=== PATIENT | male | born 1995 | race Caucasian/White ===

== ENCOUNTER 2019-04-10 15:51 | Emergency (ER) | payer BC ==
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
[2019-04-10 16:48] VITALS: BP 154/81; TEMP 97.2; O2SAT 100
== END 2019-04-10 16:36 | disposition home or self-care (01) ==
LOC: ER 15:51
DX: S00.33XA Contusion of nose, initial encounter (principal); Y04.2XXA Assault by strike against or bumped into by another person, initial encounter; Y93.9 Activity, unspecified; Y92.9 Unspecified place or not applicable; Z88.1 Allergy status to other antibiotic agents
CPT/HCPCS: 99281

== ENCOUNTER 2024-09-18 14:32 | Emergency (ER) | payer BC ==
--- NOTE | 2024-09-18 16:14 | RAD REPORT ---
EXAM: Scrotum Testicles HISTORY: 29 years Male scrotal pain COMPARISON: None TECHNIQUE: Multiplanar grayscale and color Doppler images were obtained in a testicular/scrotal ultra sound. Spectral analysis of the Doppler waveforms of the testicles were performed. FINDINGS: Right testicle: Normal in echogenicity. No focal mass. Normal internal flow. The right testicle micaela ures 4.3 x 2.6 x 3.6 cm with volume of 31 mL. Left testicle: Normal in echogenicity. No focal mass. Normal internal flow. The left testicle measur es 4.2 x 2.9 x 4.5 cm with volume of 28.9 mL. Right epididymis. No epididymal cyst. Normal internal flow. Left epididymis. No epididymal cyst. Normal internal flow. No significant hydroceles. Mild left varicocele. IMPRESSION: Mild left varicocele. Bilateral testicular blood flow.
[2024-09-18 17:54] LABS: Urine Bilirubin NEGATIVE (Negative); Urine Blood Negative (Negative); Urine Clarity Clear (Clear); Urine Color Yellow (Yellow); Urine Glucose Negative (Negative); Urine Ketones Negative (Negative)
[2024-09-18 17:55] LABS: Urine pH 5.5 (5.0-7.0)
[2024-09-18 17:56] LABS: Urine Nitrite Negative (Negative); Urine Protein TRACE (Negative); Urine Urobilinogen Normal mg/dL (0.2-1.0); Urine WBC <5 /HPF (<5)
[2024-09-18 17:57] LABS: Sqamous Epithelial <5 /HPF (None Seen); Urine Bacteria <20 /HPF (<20); Urine Culture Reflex Order NOT NEEDED; Urine Mucus 1+ /HPF (None Seen); Urine RBC <5 /HPF (None Seen)
[2024-09-18 18:00] LABS: Urine Microscopic Reflex YN ORDER UMIC
--- NOTE | 2024-09-18 18:02 | EDPHYS ---
Physician Documentation [facility] Name: Jaren Guzmán Age: 29 yrs Sex: Male : 1995 Arrival Date: 09/18/2024 Time: 14:32 Bed 14 Private MD: ED Physician Ronald Arias HPI: 09/18 14:59 This 29 yrs old Male presents to ER via Ambulatory with complaints of Testicular Pain. rn 14:59 The patient presents with scrotal pain. rn 14:59 Onset: The symptoms/episode began/occurred 5 day(s) ago. Modifying factors: The rn symptoms are alleviated by nothing, the symptoms are aggravated by nothing. Severity of symptoms: At their worst the symptoms were mild, in the emergency department the symptoms are unchanged. The patient has not experienced similar symptoms in the past. Patient reports scrotal pain, happening for almost a week. No fever or chills. No trauma. No swelling. No discoloration. Patient reports mild help with elevation of scrotum. No urinary symptoms. No abdominal pain. No back pain. No history of hernia. Denies current pain.. 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 Historical: - Allergies: 14:36 Azithromycin; ll1 14:36 Keflex; ll1 - Immunization history:: Adult Immunizations up to date. - Infectious Disease History:: Denies. - Social history:: Smoking status: Patient denies any tobacco usage or history of. - Family history:: not pertinent. - Hospitalizations: : No recent hospitalization is reported. ROS: 14:59 Constitutional: Negative for fever, chills, and weight loss, Neck: Negative for injury, rn pain, and swelling, Cardiovascular: Negative for chest pain, palpitations, and edema, Respiratory: Negative for shortness of breath, cough, wheezing, and pleuritic chest pain, Abdomen/GI: Negative for abdominal pain, nausea, vomiting, diarrhea, and constipation, Back: Negative for injury and pain, : + scrotal pain Exam: 14:59 Constitutional: This is a well developed, well nourished patient who is awake, alert, rn and in no acute distress. Abdomen/GI: soft, non-tender Male : Normal genitalia with no discharge or lesions. No redness or warmth or discoloration. No fluctuance. No masses. No swelling noted. No focal tenderness on exam. Bilateral inguinal canals empty without evidence of hernia. Normal penile exam Vital Signs: 14:40 BP 191 / 110; Pulse 97; Resp 18; Temp 97.9; Pulse Ox 100% ; Pain 4/10; ll1 14:47 BP 174 / 85; ll1 16:05 BP 136 / 78; Pulse 83; Resp 16; Pulse Ox 96% ; db 17:00 BP 131 / 81; Pulse 75; Resp 16; Pulse Ox 97% on R/A; db 14:40 Pain Scale: Adult ll1 MDM: 14:36 Medical Screening Exam initiated rn 18:02 Differential diagnosis: UTI, Varicocele, hydrocele. Data reviewed: vital signs, nurses rn notes, lab test result(s), radiologic studies, ultrasound, and as a result, I will discharge patient. Counseling: I had a detailed discussion with the patient and/or guardian regarding the historical points, exam findings, and any diagnostic results supporting the discharge/admit diagnosis, lab results, radiology results, the need for outpatient follow up, to return to the emergency department if symptoms worsen or persist or if there are any questions or concerns that arise at home. Special discussion: I discussed with the patient/guardian in detail that at this point there is no indication for admission to the hospital. It is understood, however, that if the symptoms persist or worsen the patient needs to return immediately for re-evaluation. Based on the history and exam findings, there is no indication for further emergent testing or inpatient evaluation. I discussed with the patient/guardian the need to see the urologist for further evaluation of the symptoms. 18:02 ED course: I have personally reviewed all of the results, including but not limited to rn blood tests and imaging deemed necessary to safely discharge this patient at this time. All results given to and printed out for patient. I personally went over all the results with the patient and answered all questions. Patient will follow-up with PCP and or specialist as discussed. Return precautions given and understood.. 09/18 14:43 Order name: Urinalysis w/ reflexes; Complete Time: 18:01 rn 09/18 14:43 Order name: US Scrotum Testicles; Complete Time: 16:17 rn Administered Medications: No medications were administered Disposition Summary: 09/18/24 18:02 Discharge Ordered Notes: Location: Home rn Problem: an ongoing problem rn Symptoms: have improved rn Condition: Stable rn Diagnosis - Scrotal varicocele rn Followup: rn - With: Jeff Subramanian MD - When: As needed - Reason: Recheck today's complaints, Re-evaluation by your physician Discharge Instructions: - Discharge Summary Sheet rn - Varicocele rn Forms: - Medication Reconciliation Form rn - Antibiotic rn employee health - Prescription Opioid Use rn - Patient Portal Instructions rn - Leadership Thank You Letter rn Signatures: Dispatcher [employer] Ronald Crouch MD MD rn N[place] Crystal RN RN ll1 Harper Kong RN RN db
--- NOTE | 2024-09-18 18:02 | ER ---
Nurse's Notes [facility] Name: Jaren Guzmán Age: 29 yrs Sex: Male : 1995 Arrival Date: 09/18/2024 Time: 14:32 Bed 14 Private MD: Diagnosis: Scrotal varicocele Presentation: 09/18 14:40 Chief complaint: Patient states: Noticed testicular pain since Vern night. No ll1 swelling or fever. Coronavirus screen: Client denies travel out of the [place] in the last 14 days. At this time, the client does not indicate any symptoms associated with coronavirus-19. Ebola Screen: Patient denies travel to an Ebola-affected area in the 21 days before illness onset. Initial Sepsis Screen: Does the patient meet any 2 criteria? No. Patient's initial sepsis screen is negative. Does the patient have a suspected source of infection? No. Patient's initial sepsis screen is negative. Risk Assessment: Do you want to hurt yourself or someone else? Patient reports no desire to harm self or others. Onset of symptoms was September 12, 2024. 14:40 Method Of Arrival: Ambulatory ll1 14:40 Acuity: MYA 2 ll1 Triage Assessment: 14:41 General: Appears uncomfortable, Behavior is calm, cooperative, appropriate for age. ll1 Pain: Complains of pain in testes Pain currently is 4 out of 10 on a pain scale. Quality of pain is described as aching. : Reports pain in bilateral testicle, since Sunday night. Historical: - Allergies: 14:36 Azithromycin; ll1 14:36 Keflex; ll1 - Immunization history:: Adult Immunizations up to date. - Infectious Disease History:: Denies. - Social history:: Smoking status: Patient denies any tobacco usage or history of. - Family history:: not pertinent. - Hospitalizations: : No recent hospitalization is reported. Screenin:15 [facility] ED Fall Risk Assessment (Adult) History of falling in the last 3 months, db including since admission No falls in past 3 months (0 pts) Confusion or Disorientation No (0 pts) Intoxicated or Sedated No (0 pts) Impaired Gait No (0 pts) Mobility Assist Device Used No (0 pt) Altered Elimination No (0 pt) Score/Fall Risk Level 0 - 2 = Low Risk Oriented to surroundings, Maintained a safe environment. Abuse screen: Denies threats or abuse. Denies injuries from another. Nutritional screening: No deficits noted. Tuberculosis screening: No symptoms or risk factors identified. Assessment: 15:30 Reassessment: Patient appears in no apparent distress at this time. Patient and/or db family updated on plan of care and expected duration. Pain level reassessed. Patient is alert, oriented x 3, equal unlabored respirations, skin warm/dry/pink. General: Appears in no apparent distress. comfortable, Behavior is calm, cooperative. Neuro: Level of Consciousness is awake, alert, obeys commands, Oriented to person, place, time, situation. Respiratory: Airway is patent Respiratory effort is even, unlabored, Respiratory pattern is regular, symmetrical. 18:15 Reassessment: Patient appears in no apparent distress at this time. Patient and/or db family updated on plan of care and expected duration. Pain level reassessed. Patient is alert, oriented x 3, equal unlabored respirations, skin warm/dry/pink. Patient states feeling better. Patient states symptoms have improved. Vital Signs: 14:40 BP 191 / 110; Pulse 97; Resp 18; Temp 97.9; Pulse Ox 100% ; Pain 4/10; ll1 14:47 BP 174 / 85; ll1 16:05 BP 136 / 78; Pulse 83; Resp 16; Pulse Ox 96% ; db 17:00 BP 131 / 81; Pulse 75; Resp 16; Pulse Ox 97% on R/A; db 14:40 Pain Scale: Adult ll1 ED Course: 14:34 Patient arrived in ED. im 14:36 Ronald Arias MD is Attending Physician. rn 14:36 Arm band placed on Patient placed in an exam room, on a stretcher. ll1 14:41 Triage completed. ll1 15:45 US Scrotum Testicles In Process Unspecified. EDMS 16:00 Harper Kong, YOKASTA is Primary Nurse. db 16:15 Urine collected: clean catch specimen. db 18:02 Jeff Subramanian MD is Referral Physician. rn 18:15 Patient has correct armband on for positive identification. Bed in low position. Call db light in reach. Side rails up X 1. Provided Education on: DISCHARGE AND FOLLOWUP. Pulse ox on. NIBP on. 18:15 No provider procedures requiring assistance completed. Patient did not have IV access db during this emergency room visit. Administered Medications: No medications were administered Medication: 18:15 VIS not applicable for this client. db Outcome: 18:02 Discharge ordered by . rn 18:15 Discharged to home ambulatory, with family, db 18:15 Condition: stable 18:15 Discharge instructions given to patient, Instructed on discharge instructions, follow up and referral plans. 18:19 Patient left the ED. ll1 Signatures: Dispatcher [employer] EDMS Ronald Arias MD MD rn Lewis, Lynsay, RN RN [facility] Harper Kong RN RN Ivonne Britton
[2024-09-18 18:22] VITALS: TEMP 97.9
[2024-09-18 18:26] VITALS: BP 131/81; O2SAT 97
== END 2024-09-18 18:19 | disposition home or self-care (01) ==
LOC: ER 14:32
DX: I86.1 Scrotal varices (principal)
CPT/HCPCS: 76870; 81001; 99283

== ENCOUNTER 2024-10-26 11:27 | Emergency (ER) | payer BC ==
--- OUTSIDE RECORDS SUMMARY | 2024-10-26 11:30 | XMS REPORT | Continuity of Care Document ---
Author Name Unknown Address [address] [facility] [place] [address] [facility] [place] Address [address] 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 Role Phone LILIA FRYE Attending Clinician Unavailab MARI Leal Attending Clinician Unavailable Payers Payer Name Policy Type Policy Number Effective Date Expirati on Date Source [facility] 2 [id number] 2022 00:00:00 Problems Condition Name Condition Details Condition Category Status Onset Date Resolution Date Last Treatment Date Treating Clinician Comments Source Unable to lose weight Unable to lose weight Disease Active 08-01 00:00: 00 Xiomara Seybold - Externa l BMI 40.0-44.9, adult BMI 40.0-44.9, adult Disease Active 08-01 00:00: 00 Xiomara Seybold - Externa l Seasonal allergic rhinitis due to pollen Seasonal allergic rhinitis due to pollen Disease Active 2021-06 00:00: 00 Xiomara Seybold - Externa l Elevated BP without diagnosis of hypertensi on Elevated BP without diagnosis of hypertensi on Disease Active 2021-06 00:00: 00 Xiomara Seybold - Externa l Pilonidal cyst Pilonidal cyst Disease Active 2021-06 00:00: 00 Xiomara Seybold - Externa l Class 3 severe obesity due to excess calories without serious comorbidit y with body mass index (BMI) of 40.0 to 44.9 in adult Class 3 severe obesity due to excess calories without serious comorbidit y with body mass index (BMI) of 40.0 to 44.9 in adult Disease Active 2021-06 00:00: 00 Xiomara Banguraold - Externa l Other fatigue Other fatigue Disease Active 2021-06 00:00: 00 Xiomara Chauhan - Externa l [id number] Left varicocele Problem [facility] Allergies, Adverse Reactions, Alerts Allergy Name Allergy Type Status Severity Reaction(s) Onset Date Inactive Date Treating Clinician Comments Source Orphenad fabianoscottie Nicoleeliel ty to adverse reaction s Active 2021-06 00:00: 00 Xiomara Banguraold - Externa l Social History Social Habit Start Date Stop Date Quantity Comments Source History of Tobacco Use Current Smoker [facility] Sex Assigned At [facility] History SDOH Alcohol Frequency Xiomara Goins bold - External History SDOH Alcohol Std Drinks Xiomara Orr ybold - External History SDOH Alcohol Binge Xiomara Chauhan - External Sexual orientation K steve ybjulita - External History of Occupation Xiomara Chauhan - External Alcoholic beverage intake 2024-08-01 00:00:00 2024-08-01 00:00:00 Current drinker of alcohol (finding) Xiomara Chauhan - External History of Social function 2024-08-01 00:00:00 2024-08-01 00:00:00 Xiomara Chauhan - External Sex 2022-04-27 10:51:48 2022-04-27 10:51:48 Male (finding) Xiomara Chauhan - External Alcohol intake 2022-04-27 00:00:00 2022-04-27 00:00:00 Current drinker of alcohol (finding) Xiomara Chauhan - External Alcohol Comment 2022-04-27 00:00:00 2022-04-27 00:00:00 rarely Xiomara Chauhan - External Education 2022-04-27 00:00:00 2022-04-27 00:00:00 16 Xiomara Chauhan - External Cigarettes smoked current (pack per day) - Reported 2022-04-27 00:00:00 2022-04-27 00:00:00 Xiomara Chauhan - External Cigarette pack-years 2022-04-27 00:00:00 2022-04-27 00:00:00 Xiomara Setanya - External Tobacco use and exposure 2022-04-27 00:00:00 2022-04-27 00:00:00 User of smokeless tobacco Xiomara Chauhan - External Smoking Status Start Date Stop Date Source Current Smoker 2024-10-02 00:00:00 [facility] Ex-smoker 2022-04-27 00:00:00 2022-04-27 00:00:00 Luan wilson Gissel - External Medications Ordered Medication Name Filled Medication Name Start Date Stop Date Current Medication? Ordering Clinician Indication Dosage Frequency Signature (SIG) Comments Components Source Semaglutide -WEGOVY-Pasha ght Management 0.25 MG/0.5ML Subcutaneou s Solution Auto-inject or 08-01 00:00: 00 Yes [id number] .25mg Q1W Inject 0.25 mg into the skin once a week. Xiomara merlos Amoxicillin -Pot Clavulanate 875-125 MG oral Tablet 2021-06 00:00: 00 08-01 00:00 :00 No [id number] 1{tbl} Q.5D Take 1 tablet by mouth 2 times daily Xiomara merlos Mupirocin (BACTROBAN) 2 % apply externally Ointment 2021-06 00:00: 00 08-01 00:00 :00 No [id number] Q.5D Apply 1 applicatio n topically 2 times daily Xiomara Vang l Famotidine 20 MG Famotidine 20 MG No 1{table t_at_be dtime_a s_neede d} QD Famotidine 20 MG Wegovy 0.25 MG/0.5ML Wegovy 0.25 MG/0.5ML No Wegovy 0.25 MG/0.5ML Vital Signs Vital Name Observation Time Observation Value Comments S ource weight 2024-10-02 16:45:00 297.8 [lb_av] Co mmon [facility] temperature 2024-10-02 16:45:00 98.6 [degF] Com mon [facility] bmi 2024-10-02 16:45:00 40.38 kg/m2 Comm on [facility] oximetry 2024-10-02 16:45:00 95 % Commo n [facility] respiratory rate 2024-10-02 16:45:00 18 /min Common [facility] blood pressure systolic 2024-10-02 16:45:00 140 mm[Hg] Common [facility] blood pressure diastolic 2024-10-02 16:45:00 88 mm[Hg] Common [facility] height 2024-10-02 16:45:00 72 [in_i] Commo n [facility] Systolic blood pressure 2024-08-01 17:09:00 120 mm[Hg] Xiomara Seybo ld - External Diastolic blood pressure 2024-08-01 17:09:00 66 mm[Hg] Xiomara Seybo ld - External Heart rate 2024-08-01 17:09:00 76 /min Radha holcomb Seybold - External Body temperature 2024-08-01 17:09:00 36.17 Rosalind Xiomara Seybold - External Respiratory rate 2024-08-01 17:09:00 20 /min Xiomara Orrybold - External Body height 2024-08-01 17:09:00 182.9 cm Zohra ey Seybold - External Body weight 2024-08-01 17:09:00 138.801 kg Zohra ey Seybold - External BMI 2024-08-01 17:09:00 41.50 kg/m2 Zohra ey ybold - External Oxygen saturation in Arterial blood by Pulse oximetry 2024-08-01 17:09:00 97 /min Xiomara Seybo ld - External Systolic blood pressure 2022-04-27 22:26:00 152 mm[Hg] Xiomara Seybo ld - External Diastolic blood pressure 2022-04-27 22:26:00 89 mm[Hg] Xiomara Seybo ld - External Body temperature 2022-04-27 22:26:00 37 Rosalind Xiomara Orrybold - External Respiratory rate 2022-04-27 22:26:00 14 /min Xiomara Chauhan - External Body height 2022-04-27 22:26:00 182.9 cm Zohra Banguraold - External Body weight 2022-04-27 22:26:00 136.079 kg Zohra espinoza Seybold - External BMI 2022-04-27 22:26:00 40.69 kg/m2 Zohra Chauhan - External Oxygen saturation in Arterial blood by Pulse oximetry 2022-04-27 22:26:00 99 /min Xiomara Bangurao ld - External Encounters Start Date/Time End Date/Time Encounter Type Admission Type Attending [facility] Care Department Encounter ID Source 2024-11-12 09:30:00 2024-11-12 09:30:00 Outpatient LILIA FRYE [id number] Xiomara tanya 2024-10-10 00:00:00 2024-10-10 00:00:00 Outpatient MARI RUIZ [id number] Xiomara Willemjulita 2024-10-10 00:00:00 2024-10-10 00:00:00 Outpatient MARI RUIZ [id number] Xiomara julita 2024-10-09 00:00:00 2024-10-09 00:00:00 Outpatient MARI RUIZ [id number] Xiomara tanya 2024-10-02 00:00:00 2024-10-02 00:00:00 OFFICE VISIT NEW PT LEVEL 3 STLMLC STLMLC [id number] [facility] 2024-09-11 10:00:00 2024-09-11 10:00:00 Outpatient LILIA FRYE [id number] Xiomara Chauhan 2024-08-01 11:00:00 2024-08-01 11:00:00 Outpatient LILIA FRYE [id number] Xiomara Chauhan 2024-07-31 10:00:00 2024-07-31 10:00:00 Outpatient LILIA FRYE [id number] Xiomara Chauhan 2022-06-02 00:00:00 2022-06-02 00:00:00 Outpatient MARI RUIZ [id number] Xiomara Chauhan 2022-05-10 11:15:00 2022-05-10 11:15:00 Outpatient MARI RUIZ [id number] Xiomara Chauhan 2022-04-27 16:30:00 2022-04-27 16:30:00 Outpatient MARI RUIZ [id number] Xiomara Chauhan
--- NOTE | 2024-10-26 11:38 | EDPHYS ---
Physician Documentation [facility] Name: Jaren Guzmán Age: 29 yrs Sex: Male : 1995 Arrival Date: 10/26/2024 Time: 11:27 Bed IW1 Private MD: ED Physician Ronald Arias HPI: 10/26 11:36 This 29 yrs old Male presents to ER via Ambulatory with complaints of Lump Behind Ear. kb 11:36 Pt is a 29 year old male who woke up with swelling just below left ear this morning. kb Denies pain, fever. States he can feel that it is there, but it doesn't bother him at all. Denies ear pain, toothache. . Historical: - Allergies: 11:34 Azithromycin; ss 11:34 Keflex; ss - Home Meds: 11:34 None [Active]; ss - PMHx: 11:34 GERD; ss - PSHx: 11:34 None; ss - Infectious Disease History:: Denies. - Social history:: Smoking status: Patient denies any tobacco usage or history of. ROS: 11:35 Constitutional: As per HPI kb Exam: 11:35 Constitutional: This is a well developed, well nourished patient who is awake, alert, kb and in no acute distress. Head/Face: Normocephalic, atraumatic. ENT: Moist Mucous membranes Cardiovascular: Regular rate Respiratory: Respirations even and unlabored. No increased work of breathing. Talking in full sentences MS/ Extremity: Pulses equal, no cyanosis. Neurovascular intact. Full, normal range of motion. Neuro: Awake and alert, GCS 15, oriented to person, place, time, and situation. 11:35 Skin: swelling and firmness just below left ear, no tenderness. Vital Signs: 11:33 BP 139 / 96; Resp 15; ss 11:36 Pulse 93; Temp 97.8(O); Pulse Ox 98% ; Weight 131.54 kg; Height 6 ft. 0 in. ; Pain 0/10;ss 11:36 Body Mass Index 39.33 (131.54 kg, 182.88 cm) ss 11:36 Pain Scale: Adult ss MDM: 11:31 Medical Screening Exam initiated kb 11:36 Differential diagnosis: muscle strain, torticollis, abscess, cellulitis. Data reviewed: kb vital signs, nurses notes. Counseling: I had a detailed discussion with the patient and/or guardian regarding the historical points, exam findings, and any diagnostic results supporting the discharge/admit diagnosis, the need for outpatient follow up, a family practitioner, to return to the emergency department if symptoms worsen or persist or if there are any questions or concerns that arise at home. Administered Medications: No medications were administered Disposition: 12:15 Co-signature as Attending Physician, Ronald Arias MD I reviewed the patient's care rn provided by the Advanced Practice Provider and agree with the diagnosis and treatment plan. Disposition Summary: 10/26/24 11:37 Discharge Ordered Notes: Location: Home kb Condition: Stable kb Diagnosis - Localized swelling, mass and lump, neck kb Followup: kb - With: Emergency Department - When: As needed - Reason: Worsening of condition Followup: kb - With: Private Physician - When: 2 - 3 days - Reason: Recheck today's complaints, Continuance of care, Re-evaluation by your physician Discharge Instructions: - Discharge Summary Sheet kb - Acute Torticollis, Adult kb - Cellulitis, Adult, Joxc-rh-Tqam kb Forms: - Medication Reconciliation Form kb - Antibiotic Education kb - Prescription Opioid Use kb - Patient Portal Instructions kb - Leadership Thank You Letter kb Prescriptions: - Bactrim DS 800-160 mg Oral Tablet - take 1 tablet ORAL route every 12 hours for 7 days; 14 tablet; Refills: 0, kb Product Selection Permitted Signatures: Ledy Jules, JOSE ALEJANDRO-C TIRE CORD WEAVER-CkRonald Mendez MD MD rn Blanchard, Shelby, RN RN ss Corrections: (The following items were deleted from the chart) 11:36 11:35 Skin: postauricular swelling, area firm, not tender. kb kb
--- NOTE | 2024-10-26 11:38 | ER ---
Nurse's Notes [facility] Name: Jaren Guzmán Age: 29 yrs Sex: Male : 1995 Arrival Date: 10/26/2024 Time: 11:27 Bed IW1 Private MD: Diagnosis: Localized swelling, mass and lump, neck Presentation: 10/26 11:33 Chief complaint: Patient states: swelling just under L ear that was noticed this ss morning. Coronavirus screen: Client denies travel out of the [place] in the last 14 days. Ebola Screen: Patient denies exposure to infectious person. Patient denies travel to an Ebola-affected area in the 21 days before illness onset. Initial Sepsis Screen: Does the patient meet any 2 criteria? No. Patient's initial sepsis screen is negative. Does the patient have a suspected source of infection? No. Patient's initial sepsis screen is negative. Risk Assessment: Do you want to hurt yourself or someone else? Patient reports no desire to harm self or others. Onset of symptoms was October 26, 2024. 11:33 Method Of Arrival: Ambulatory 11:33 Acuity: MYA 4 ss Historical: - Allergies: 11:34 Azithromycin; ss 11:34 Keflex; ss - Home Meds: 11:34 None [Active]; ss - PMHx: 11:34 GERD; ss - PSHx: 11:34 None; ss - Infectious Disease History:: Denies. - Social history:: Smoking status: Patient denies any tobacco usage or history of. Screenin:36 Abuse screen: Denies threats or abuse. Denies injuries from another. Nutritional ss screening: No deficits noted. Tuberculosis screening: Never had TB. Assessment: 11:36 General: Appears in no apparent distress. comfortable, Behavior is calm, cooperative, ss Denies fever, feeling ill. Neuro: Level of Consciousness is awake, alert, obeys commands, Oriented to person, place, time, situation. Respiratory: Airway is patent Respiratory effort is even, unlabored, Respiratory pattern is regular, symmetrical. EENT: Oral mucosa is moist. Derm: Skin is intact, is healthy with good turgor, Skin is dry, Skin is pink, warm \T\ dry. normal. 11:36 Pain: Denies pain. Musculoskeletal: Swelling present in under L ear. Vital Signs: 11:33 BP 139 / 96; Resp 15; ss 11:36 Pulse 93; Temp 97.8(O); Pulse Ox 98% ; Weight 131.54 kg; Height 6 ft. 0 in. ; Pain 0/10;ss 11:36 Body Mass Index 39.33 (131.54 kg, 182.88 cm) ss 11:36 Pain Scale: Adult ss ED Course: 11:30 Patient arrived in ED. [id number] 11:31 Ledy Jules FNP-C [facility] kb 11:31 Ronald Arias MD is Attending Physician. kb 11:34 Triage completed. ss 11:34 Arm band placed on right wrist. ss 11:36 Patient has correct armband on for positive identification. ss 11:36 No provider procedures requiring assistance completed. ss 11:36 Patient did not have IV access during this emergency room visit. ss Administered Medications: No medications were administered Medication: 11:36 VIS not applicable for this client. ss Outcome: 11:36 Discharged to home ambulatory, 11:36 Condition: good 11:36 Discharge instructions given to patient, Instructed on discharge instructions, follow up and referral plans. medication usage, Demonstrated understanding of instructions, follow-up care, medications, Prescriptions given X 1, 11:37 Discharge ordered by MD. kb 11:43 Patient left the ED. Signatures: Ledy Jules FNP-C FNP-Ckb Blanchard, Shelby, RN RN Jennie Goss [email or web address]
[2024-10-26 11:47] VITALS: BP 139/96
[2024-10-26 11:49] VITALS: TEMP 97.8; O2SAT 98
== END 2024-10-26 11:43 | disposition home or self-care (01) ==
LOC: ER 11:27
DX: R22.1 Localized swelling, mass and lump, neck (principal)
CPT/HCPCS: 99283